=== PATIENT | male | born 1970 | race Two or more races ===

== ENCOUNTER 2023-04-07 15:12 | Emergency (ER) | payer OTHER ==
[~2023-04-07] VITALS: Ht 170.2 cm; Wt 75.0 kg
[2023-04-07 15:27] VITALS: BP 132/72; PULSE 83; RESP 19; O2SAT 96
[2023-04-09 09:06] LABS: Hepatitis B Surface Antibody Positive (Negative)
[2023-04-09 09:19] LABS: Hepatitis B Surface Antigen Negative (Negative)
== END 2023-04-08 18:07 | disposition home or self-care (01) ==
LOC: ER 15:12 → EEVIPCON 15:12 → ER 20:15
DX: Z77.21 Contact with and (suspected) exposure to potentially hazardous body fluids (principal); K75.9 Inflammatory liver disease, unspecified
CPT/HCPCS: 36415; 86703; 86706; 86803; 87340